=== PATIENT | female | born 1950 | race Caucasian/White ===

== ENCOUNTER 2020-06-24 11:09 | Outpatient (CLI) | payer MEDICARE ==
[2020-06-24 18:36] LABS: SARS-CoV-2 PCR by NAA Not Detected (NotDetected)
== END 2020-06-24 11:10 | disposition home or self-care (01) ==
LOC: CSHLAB 11:09
PROVIDERS: ATTEND Surgery
DX: Z20.822 Contact with and (suspected) exposure to COVID-19 (principal)
CPT/HCPCS: 87635; U0003; U0005

== ENCOUNTER 2020-06-29 10:39 | Outpatient (CLI) | payer MEDICARE | END 2020-06-29 10:40 | disposition home or self-care (01) | LOC: CSHRAD 10:39 | PROVIDERS: ATTEND Surgery | DX: K21.9 Gastro-esophageal reflux disease without esophagitis (principal); Z98.84 Bariatric surgery status | CPT/HCPCS: 74220 ==

== ENCOUNTER 2021-04-28 11:59 | Inpatient (IN) | payer MEDICARE, OTHER ==
[2021-04-28 12:48] LABS: #Basophils 0.1 10x3/uL (0.0-0.2); #Monocytes 0.8 10x3/uL (0.0-1.1); #Neutrophils 9.7 10x3/uL (1.5-8.4); %Basophils 0.5 % (0.0-2.0); %Lymphocytes 11.4 % (18.0-47.0); %Monocytes 6.3 % (0.0-10.0); Hemoglobin 13.6 g/dL (12.0-15.5); Mean Corpuscular HGB CONC 33.6 g/dL (32.0-36.0); Mean Corpuscular Hemoglobin 31.3 pg (27.0-33.0); Mean Corpuscular Volume 93.1 fl (81.6-98.3); Mean Platelet Volume 8.6 fl (7.4-10.4); Platelet Count 406 10x3/uL (150-450); RBC Distribution Width 13.6 % (11.5-14.5); Red Blood Cell (RBC) Count 4.35 10x6/uL (3.90-5.03)
[2021-04-28 13:03] LABS: ALT (SGPT) 8 U/L (8-55); AST (SGOT) 14 U/L (5-34); Albumin 3.9 g/dL (3.4-4.8); Alkaline Phosphatase 84 U/L (40-110); Anion Gap 21 mmol/L (10-20); BUN (Urea Nitrogen) 17 mg/dL (9.8-20.1); Bilirubin, Total 0.9 mg/dL (0.2-1.2); Calc. Creatinine Clearance 0 mL/min (70-130); Calcium 8.8 mg/dL (7.8-10.44); Carbon Dioxide 20 mmol/L (23-31); Chloride 94 mmol/L (98-107); Globulin 3.3 g/dL (2.4-3.5); Glucose 193 mg/dL (80-115); Potassium 3.1 mmol/L (3.5-5.1); Protein, Total 7.2 g/dL (5.8-8.1); Sodium 132 mmol/L (136-145)
[2021-04-28 13:26] LABS: CKMB 0.4 ng/mL (0-6.6)
[2021-04-28 13:38] LABS: SARS-CoV-2 NAA Rapid Test Not Detected (NotDetected)
[2021-04-28 13:58] LABS: Bilirubin Neg (Negative); Blood, Urine 150 (Negative); Clarity Cloudy (Clear); Glucose, Urine (Dipstick) Normal (Negative); Ketone, Urine Negative (Negative); Leukocyte 100 (Negative); Nitrite Negative (Negative); Protein, Urine (Dipstick) 100 mg/dl (Neg-Trace); Urobilinogen Normal mg/dL (Less than 2)
[2021-04-28 14:13] LABS: WBC/HPF 21-50 HPF (0-3)
[2021-04-28 14:14] LABS: Bacteria/HPF 4+ HPF (None Seen)
[2021-04-28] MEDS ORDERED: cefTRIAXone\\ROCEPHIN 2 GM VIAL ONE (15:22)
[2021-04-28 15:31] LABS: Lactic Acid 0.8 mmol/L (0.5-2.2)
[2021-04-28 18:40] LABS: Troponin I 0.081 ng/mL (< 0.028)
[2021-04-28] MEDS ORDERED: Communication Order-Pharmacy FS PRN (19:46)
[2021-04-28 19:51] LABS: Troponin I 0.077 ng/mL (< 0.028)
[2021-04-28] MEDS ORDERED: Ondansetron PF 4 MG/2 ML Vial IVP PRN (19:57)
[2021-04-28] MEDS ORDERED: Acetaminophen 325 MG TAB PO PRN (19:57)
[2021-04-28] MEDS ORDERED: Senokot S 8.6-50 MG TAB PO PRN (19:57)
[2021-04-28] MEDS ORDERED: Ondansetron ODT 4 MG TAB PO PRN (19:57)
[2021-04-28 20:08] VITALS: BMI 30.8
[2021-04-28 20:12] LABS: Magnesium 1.6 mg/dL (1.6-2.6)
[2021-04-28] MEDS ORDERED: Vancomycin 1.5 GRAM/300 ML BAG 1.5 GM in Premix Bag 1 BAG IVPB SCH (21:00)
[2021-04-28] MEDS ORDERED: Acetaminophen 325 MG TAB ONE (21:51)
[2021-04-28] MEDS ORDERED: Potassium Chloride 20 MEQ TAB ONE (21:51)
[2021-04-28] MEDS: Lactated Ringer's 1,000 ML IV SCH (22:10)
[2021-04-28] MEDS: Potassium Chloride 20 MEQ TAB PO SCH (22:11)
[2021-04-28 23:20] LABS: Troponin I 0.086 ng/mL (< 0.028)
[2021-04-29] MEDS ORDERED: Potassium Chloride 20 MEQ TAB ONE (01:49)
[2021-04-29] MEDS: Potassium Chloride 20 MEQ TAB PO SCH (02:00)
[2021-04-29] MEDS ORDERED: Carbidopa/Levodopa 25-100 mg Tablet PO SCH (03:30)
[2021-04-29] MEDS ORDERED: Magnesium Oxide 400 MG TAB PO SCH (03:45)
[2021-04-29] MEDS: Lactated Ringer's 1,000 ML IV SCH (03:47)
[2021-04-29 05:25] LABS: Anion Gap 12 mmol/L (10-20); BUN (Urea Nitrogen) 14 mg/dL (9.8-20.1); Calc. Creatinine Clearance 71 mL/min (70-130); Calcium 8.1 mg/dL (7.8-10.44); Carbon Dioxide 25 mmol/L (23-31); Chloride 102 mmol/L (98-107); Glucose 95 mg/dL (80-115); Potassium 3.7 mmol/L (3.5-5.1); Sodium 135 mmol/L (136-145)
[2021-04-29] MEDS: Levothyroxine Sodium 100 MCG TAB PO SCH (05:28)
[2021-04-29 05:50] LABS: #Basophils 0.1 10x3/uL (0.0-0.2); #Monocytes 0.7 10x3/uL (0.0-1.1); #Neutrophils 5.4 10x3/uL (1.5-8.4); %Basophils 0.6 % (0.0-2.0); %Eosinophils 0.4 % (0.0-6.0); %Lymphocytes 24.3 % (18.0-47.0); %Monocytes 8.8 % (0.0-10.0); %Neutrophils 65.2 % (40.0-75.0); Hemoglobin 11.7 g/dL (12.0-15.5); Mean Corpuscular HGB CONC 32.9 g/dL (32.0-36.0); Mean Corpuscular Hemoglobin 31.8 pg (27.0-33.0); Mean Corpuscular Volume 96.7 fl (81.6-98.3); Platelet Count 297 10x3/uL (150-450); RBC Distribution Width 13.7 % (11.5-14.5); Red Blood Cell (RBC) Count 3.68 10x6/uL (3.90-5.03); White Blood Cell (WBC) Count 8.3 10x3/uL (3.5-10.5)
[2021-04-29] MEDS ORDERED: Lorazepam 1 MG TAB PO PRN (07:25)
[2021-04-29] MEDS ORDERED: Amitriptyline HCl 25 MG TAB PO SCH (09:00)
[2021-04-29] MEDS: Enoxaparin Sodium 40 MG/0.4 ML SYRINGE SC SCH (10:36)
[2021-04-29] MEDS: HYDROcodone/Acetaminophen 5/325 mg Tablet PO PRN ×2 (10:48→20:18)
[2021-04-29] MEDS ORDERED: Promethazine 25 MG TAB PO PRN (13:07)
[2021-04-29] MEDS ORDERED: Promethazine HCl 25 MG SUPP PR PRN (13:07)
[2021-04-29] MEDS: cefTRIAXone\\ROCEPHIN 2 GM in Sodium Chloride 0.9% 100 ML IVPB SCH (14:57)
[2021-04-29] MEDS ORDERED: Vancomycin HCl 1.25 GM in Sodium Chloride 0.9% 250 ML 300 ML IVPB SCH (20:00)
[2021-04-29] MEDS: Amitriptyline HCl 25 MG TAB PO SCH (20:17)
[2021-04-29] MEDS ORDERED: Vancomycin HCl 1 GM in Sodium Chloride 0.9% 250 ML 250 ML IVPB SCH (21:00)
[2021-04-29] MEDS ORDERED: VANCOMYCIN 1.25 GM/250 ML BAG 1.25 GM in Premix Bag 1 BAG IVPB SCH (21:00)
[2021-04-30] MEDS: Levothyroxine Sodium 100 MCG TAB PO SCH (05:29)
[2021-04-30] MEDS: Magnesium Oxide 400 MG TAB PO SCH (09:26)
[2021-04-30] MEDS: Enoxaparin Sodium 40 MG/0.4 ML SYRINGE SC SCH (09:26)
[2021-04-30] MEDS: cefTRIAXone\\ROCEPHIN 2 GM in Sodium Chloride 0.9% 100 ML IVPB SCH (15:52)
[2021-04-30] MEDS: Amitriptyline HCl 25 MG TAB PO SCH (20:40)
[2021-04-30] MEDS: HYDROcodone/Acetaminophen 5/325 mg Tablet PO PRN (20:41)
[2021-04-30] MEDS ORDERED: Carbidopa/Levodopa CR 50-200 mg Tablet PO SCH (21:00)
[2021-05-01] MEDS: Levothyroxine Sodium 100 MCG TAB PO SCH (05:43)
[2021-05-01] MEDS: Enoxaparin Sodium 40 MG/0.4 ML SYRINGE SC SCH (08:36)
[2021-05-01] MEDS: Magnesium Oxide 400 MG TAB PO SCH (08:37)
[2021-05-01 08:55] VITALS: TEMP 96.7
[2021-05-01 11:15] VITALS: BP 107/52
== END 2021-05-01 12:20 | disposition home or self-care (01) | DRG 871 ==
LOC: CSHERS 11:59 → CSHERHOLD 17:09 → CSHTELE 04-29 02:41
PROVIDERS: ADMIT Family Medicine; ATTEND Family Medicine
DX: A41.51 Sepsis due to Escherichia coli [E. coli] (principal); I21.A1 Myocardial infarction type 2; N10 Acute pyelonephritis; N17.9 Acute kidney failure, unspecified; Z20.822 Contact with and (suspected) exposure to COVID-19; R65.20 Severe sepsis without septic shock; E03.9 Hypothyroidism, unspecified; I10 Essential (primary) hypertension; G25.81 Restless legs syndrome; G47.00 Insomnia, unspecified; D64.9 Anemia, unspecified; R73.9 Hyperglycemia, unspecified; M19.90 Unspecified osteoarthritis, unspecified site; Z96.653 Presence of artificial knee joint, bilateral; E87.6 Hypokalemia; K21.9 Gastro-esophageal reflux disease without esophagitis; Z85.3 Personal history of malignant neoplasm of breast; Z79.899 Other long term (current) drug therapy; Z79.890 Hormone replacement therapy; Z88.6 Allergy status to analgesic agent; Z88.1 Allergy status to other antibiotic agents; Z88.8 Allergy status to other drugs, medicaments and biological substances; Z90.13 Acquired absence of bilateral breasts and nipples; Z90.49 Acquired absence of other specified parts of digestive tract; Z82.3 Family history of stroke; Z83.3 Family history of diabetes mellitus; Z82.49 Family history of ischemic heart disease and other diseases of the circulatory system; Z90.710 Acquired absence of both cervix and uterus; Z90.721 Acquired absence of ovaries, unilateral
CPT/HCPCS: 36415; 36416; 71045; 80048; 80053; 81003; 81015; 82553; 83605; 83735; 84484; 85025; 87040; 87077; 87086; 87149; 87186; 87804; 93005; 93010; 96365; 96366; J0696; J1650; J3370; J3490; J7120; U0002

== ENCOUNTER 2021-05-11 14:00 | Emergency (ER) | payer OTHER ==
[2021-05-11 15:02] LABS: #Basophils 0.1 10x3/uL (0.0-0.2); #Eosinphils 0.1 10x3/uL (0.0-0.5); #Monocytes 0.5 10x3/uL (0.0-1.1); #Neutrophils 4.7 10x3/uL (1.5-8.4); %Basophils 0.9 % (0.0-2.0); %Eosinophils 1.6 % (0.0-6.0); %Monocytes 7.2 % (0.0-10.0); %Neutrophils 62.6 % (40.0-75.0); Hemoglobin 13.6 g/dL (12.0-15.5); Mean Corpuscular HGB CONC 31.9 g/dL (32.0-36.0); Mean Corpuscular Hemoglobin 30.5 pg (27.0-33.0); Mean Corpuscular Volume 95.7 fl (81.6-98.3); Mean Platelet Volume 8.7 fl (7.4-10.4); Platelet Count 526 10x3/uL (150-450); RBC Distribution Width 13.7 % (11.5-14.5); Red Blood Cell (RBC) Count 4.46 10x6/uL (3.90-5.03); White Blood Cell (WBC) Count 7.5 10x3/uL (3.5-10.5)
[2021-05-11 15:14] LABS: ALT (SGPT) 14 U/L (8-55); AST (SGOT) 19 U/L (5-34); Albumin 4.2 g/dL (3.4-4.8); Alkaline Phosphatase 97 U/L (40-110); Anion Gap 17 mmol/L (10-20); BUN (Urea Nitrogen) 16 mg/dL (9.8-20.1); Bilirubin, Total 0.3 mg/dL (0.2-1.2); Calc. Creatinine Clearance 0 mL/min (70-130); Calcium 9.5 mg/dL (7.8-10.44); Carbon Dioxide 28 mmol/L (23-31); Chloride 94 mmol/L (98-107); Globulin 3.4 g/dL (2.4-3.5); Glucose 104 mg/dL (80-115); Lipase 45 U/L (8-78); Protein, Total 7.6 g/dL (5.8-8.1); Sodium 135 mmol/L (136-145)
[2021-05-11] MEDS ORDERED: Ondansetron PF 4 MG/2 ML Vial ONE (16:20)
[2021-05-11] MEDS ORDERED: Morphine 4 MG/ML VIAL ONE (16:20)
== END 2021-05-11 16:44 | disposition home or self-care (01) ==
LOC: CSHERS 14:00
DX: R06.02 Shortness of breath (principal)
CPT/HCPCS: 71275; 80053; 83690; 83880; 84484; 85025; 93005; J2270; J2405

== ENCOUNTER 2021-08-02 15:37 | Outpatient (CLI) | payer OTHER | END 2021-08-02 15:38 | disposition home or self-care (01) | LOC: CSHULT 15:37 | PROVIDERS: ATTEND Family Medicine | DX: M79.661 Pain in right lower leg (principal); M79.662 Pain in left lower leg; R79.81 Abnormal blood-gas level; R06.02 Shortness of breath | CPT/HCPCS: 93970 ==

== ENCOUNTER 2022-07-10 12:33 | Emergency (ER) | payer MEDICARE, OTHER ==
[2022-07-10 13:08] LABS: Hemoglobin 12.2 g/dL (12.0-15.5); Mean Corpuscular HGB CONC 32.5 g/dL (32.0-36.0); Mean Corpuscular Hemoglobin 28.4 pg (27.0-33.0); Mean Corpuscular Volume 87.2 fl (81.6-98.3); Mean Platelet Volume 9.7 fl (7.4-10.4); Platelet Count 262 10x3/uL (150-450); RBC Distribution Width 14.7 % (11.5-14.5)
[2022-07-10 13:16] LABS: MDiff Complete? YES
[2022-07-10 13:27] LABS: ALT (SGPT) 13 U/L (8-55); AST (SGOT) 24 U/L (5-34); Albumin 3.8 g/dL (3.4-4.8); Alkaline Phosphatase 74 U/L (40-110); Anion Gap 16 mmol/L (10-20); BUN (Urea Nitrogen) 15 mg/dL (9.8-20.1); Bilirubin, Total 0.2 mg/dL (0.2-1.2); Calc. Creatinine Clearance 0 mL/min (70-130); Calcium 8.4 mg/dL (7.8-10.44); Carbon Dioxide 25 mmol/L (23-31); Chloride 98 mmol/L (98-107); Estimated GFR 53; Globulin 2.9 g/dL (2.4-3.5); Glucose 163 mg/dL (80-115); Potassium 3.1 mmol/L (3.5-5.1); Protein, Total 6.7 g/dL (5.8-8.1); Sodium 136 mmol/L (136-145)
[2022-07-10 13:57] LABS: Band 11 % (5-11); Lymphocytes 8 % (21-51)
[2022-07-10 13:59] LABS: Neutrophil 78 % (42-75)
[2022-07-10 14:00] LABS: Monocytes 3 % (0-10); Platelet Clumps MODERATE; Platelet Morphology Comment Appears Adequate; Toxic Granulation SLIGHT
[2022-07-10 15:07] LABS: Bilirubin Neg (Negative); Blood, Urine 10 (Negative); Clarity Cloudy (Clear); Glucose, Urine (Dipstick) Normal (Negative); Ketone, Urine 5 mg/dL (Negative); Leukocyte 100 (Negative); Nitrite Negative (Negative); Protein, Urine (Dipstick) 30 mg/dl (Neg-Trace); Specific Gravity, Urine 1.025 (1.005-1.030)
[2022-07-10 15:22] LABS: SARS-CoV-2 NAA Rapid Test DETECTED (NotDetected)
[2022-07-10 15:32] LABS: Bacteria/HPF 4+ HPF (None Seen); RBC/HPF 0-3 HPF (0-3)
[2022-07-10] MEDS ORDERED: Cephalexin 250 MG CAP ONE (15:47)
== END 2022-07-10 16:37 | disposition home or self-care (01) ==
LOC: CSHERS 12:33
DX: U07.1 COVID-19 (principal); N39.0 Urinary tract infection, site not specified; I10 Essential (primary) hypertension; Z20.822 Contact with and (suspected) exposure to COVID-19
CPT/HCPCS: 0240U; 70450; 71045; 80053; 83605; 84484; 85025; 87040; 87086; 93005; 36415; 81003; 81015

== ENCOUNTER 2024-10-29 10:13 | Outpatient (CLI) | payer OTHER ==
[2024-10-29 11:54] LABS: Estimated GFR - POC 32.0
== END 2024-10-29 10:14 | disposition home or self-care (01) ==
LOC: CSHCT 10:13
PROVIDERS: ATTEND Student in an Organized Health Care Education/Training Program
DX: R06.09 Other forms of dyspnea (principal)
CPT/HCPCS: 71275; 82565

== ENCOUNTER 2024-10-29 15:15 | Observation (INO) | payer OTHER ==
[2024-10-29 15:49] LABS: #Basophils 0.06 10x3/uL (0.0-0.2); #Eosinophils 0.12 10x3/uL (0.0-0.5); #Monocytes 0.62 10x3/uL (0.0-1.1); #Neutrophils 3.85 10x3/uL (1.5-8.4); %Basophils 0.9 % (0.0-2.0); %Eosinophils 1.8 % (0.0-6.0); %Lymphocytes 30.7 % (18.0-47.0); %Monocytes 9.2 % (0.0-10.0); %Neutrophils 57.3 % (40.0-75.0); Hematocrit 33.9 % (34.9-44.5); Hemoglobin 10.7 g/dL (12.0-15.5); Mean Corpuscular Hemoglobin 25.2 pg (27.0-33.0); Mean Corpuscular Volume 79.8 fL (81.6-98.3); Platelet Count 394 10x3/uL (150-450); Red Blood Cell (RBC) Count 4.25 10x6/uL (3.90-5.03); White Blood Cell (WBC) Count 6.72 10x3/uL (3.5-10.5)
[2024-10-29 16:07] LABS: ALT (SGPT) 13 U/L (Less than 34); AST (SGOT) 16 U/L (11-34); Albumin 3.8 g/dL (3.1-4.5); Alkaline Phosphatase 75 U/L (40-110); Anion Gap 16 mmol/L (10-20); BUN (Urea Nitrogen) 22 mg/dL (9.8-20.1); Bilirubin, Total 0.3 mg/dL (0.3-1.2); Calc. Creatinine Clearance 0 mL/min (70-130); Calcium 9.2 mg/dL (7.8-10.44); Carbon Dioxide 26 mmol/L (23-31); Chloride 97 mmol/L (98-107); Globulin 3.6 g/dL (2.4-3.5); Glucose 103 mg/dL (83-110); Potassium 3.6 mmol/L (3.5-5.1); Sodium 135 mmol/L (136-145)
[2024-10-29 16:10] LABS: Troponin I Less than 0.010 ng/mL (< 0.028)
[2024-10-29] MEDS ORDERED: Melatonin 3 MG TAB PO PRN (18:18)
[2024-10-29] MEDS ORDERED: Acetaminophen 325 MG TAB PO PRN (18:18)
[2024-10-29] MEDS ORDERED: Senokot S 8.6-50 MG TAB PO PRN (18:18)
[2024-10-29] MEDS ORDERED: Ondansetron PF 4 MG/2 ML Vial IVP PRN (18:18)
[2024-10-29] MEDS ORDERED: Electrolyte Replacement Protocol 1 EACH FS SCH (18:30)
[2024-10-29 19:41] LABS: Troponin I 0.016 ng/mL (< 0.028)
[2024-10-29 21:33] VITALS: BMI 27.1
[2024-10-29 21:54] LABS: Troponin I 0.012 ng/mL (< 0.028)
[2024-10-29] MEDS: Aspirin 81 mg Enteric Coated Tablet PO SCH (22:13)
[2024-10-30 05:10] LABS: #Basophils 0.07 10x3/uL (0.0-0.2); #Eosinophils 0.22 10x3/uL (0.0-0.5); #Monocytes 0.62 10x3/uL (0.0-1.1); #Neutrophils 3.04 10x3/uL (1.5-8.4); %Basophils 1.1 % (0.0-2.0); %Eosinophils 3.5 % (0.0-6.0); %Lymphocytes 36.0 % (18.0-47.0); %Monocytes 10.0 % (0.0-10.0); %Neutrophils 49.1 % (40.0-75.0); Hematocrit 32.5 % (34.9-44.5); Hemoglobin 10.3 g/dL (12.0-15.5); Mean Corpuscular Hemoglobin 25.4 pg (27.0-33.0); Mean Corpuscular Volume 80.0 fL (81.6-98.3); Platelet Count 342 10x3/uL (150-450); Red Blood Cell (RBC) Count 4.06 10x6/uL (3.90-5.03); White Blood Cell (WBC) Count 6.20 10x3/uL (3.5-10.5)
[2024-10-30 05:24] LABS: Anion Gap 12 mmol/L (10-20); BUN (Urea Nitrogen) 17 mg/dL (9.8-20.1); Calc. Creatinine Clearance 48 mL/min (70-130); Calcium 9.0 mg/dL (7.8-10.44); Carbon Dioxide 29 mmol/L (23-31); Chloride 99 mmol/L (98-107); Glucose 100 mg/dL (83-110); Potassium 3.3 mmol/L (3.5-5.1); Sodium 137 mmol/L (136-145)
[2024-10-30] MEDS: Pantoprazole 40 MG DR.TAB PO SCH (09:25)
[2024-10-30 11:01] LABS: Cardiac Risk 3.6 (Less than 4.5); Cholesterol 237 mg/dl (< 200 Desired); HDL Cholesterol 65 mg/dL (>60 Neg Risk); LDL Cholesterol, Calculated 147 mg/dL; Triglycerides 123 mg/dL (Less than 150)
[2024-10-30 11:20] LABS: Magnesium 1.8 mg/dL (1.6-2.6)
[2024-10-30] MEDS: Magnesium 2 GM/50 ML(in water) 2 GM in Premix 1 BAG IVPB SCH (12:47)
[2024-10-30 13:24] LABS: Iron 30 ug/dL (50-170); Iron Binding Capacity, Total 423 mcg/dL (265-497)
[2024-10-30] MEDS: Losartan 25 MG TAB PO SCH (14:45)
[2024-10-30] MEDS: Sodium Ferric Gluconate 250 MG in Sodium Chloride 0.9% 250 ML 250 ML IVPB SCH (14:45)
[2024-10-30 16:36] VITALS: BP 125/69; TEMP 97.9
[2024-10-30] MEDS ORDERED: Aspirin 81 mg Enteric Coated Tablet PO SCH (21:00)
[2024-10-31] MEDS ORDERED: Losartan 25 MG TAB PO SCH (09:00)
== END 2024-10-30 18:48 | disposition home or self-care (01) ==
LOC: CSHERS 15:15 → CSHTELE 17:03
PROVIDERS: ADMIT Internal Medicine; ATTEND Internal Medicine
PROC: B24BZZZ Ultrasonography of Heart with Aorta (ICD-10-PCS; principal; 2024-10-30)
DX: R06.02 Shortness of breath (principal); N17.9 Acute kidney failure, unspecified; I10 Essential (primary) hypertension; E03.9 Hypothyroidism, unspecified; E78.2 Mixed hyperlipidemia; K21.9 Gastro-esophageal reflux disease without esophagitis; G25.81 Restless legs syndrome; Z98.51 Tubal ligation status; Z85.3 Personal history of malignant neoplasm of breast; Z96.653 Presence of artificial knee joint, bilateral; Z90.710 Acquired absence of both cervix and uterus; Z90.49 Acquired absence of other specified parts of digestive tract; Z90.89 Acquired absence of other organs; Z98.890 Other specified postprocedural states; Z88.1 Allergy status to other antibiotic agents; Z88.5 Allergy status to narcotic agent; Z88.8 Allergy status to other drugs, medicaments and biological substances; Z79.890 Hormone replacement therapy; Z79.899 Other long term (current) drug therapy; R06.09 Other forms of dyspnea
CPT/HCPCS: 71275; 80048; 80053; 80061; 82565; 82728; 83540; 83550; 83735; 83880; 84443; 84484 ×2; 85025 ×2; 93005; 93306; 96374; 99285; G0378 ×3; J2916; J3475; J7050; 36415

== ENCOUNTER 2024-12-02 10:35 | Outpatient (CLI) | payer OTHER | END 2024-12-02 10:36 | disposition home or self-care (01) | LOC: CSHCP 10:35 | PROVIDERS: ATTEND Student in an Organized Health Care Education/Training Program | DX: R06.09 Other forms of dyspnea (principal) | CPT/HCPCS: 94060; 94664; 94726; 94729; 94760 ==